=== PATIENT | female | born 1970 | race Caucasian/White ===

== ENCOUNTER → 2022-06-16 16:23 | Outpatient (CLI) | payer OTHER, SELFPAY ==
--- NOTE | ~2022-06-16 | MM_ITS ---
EXAMINATION: MM screening petrona BI w grzegorz HISTORY: Screening TECHNIQUE: Craniocaudal and mediolateral oblique 3-D tomosynthesis images were obtained and synthetic 2-D images were generated. CAD analysis was submitted and interpreted. COMPARISON: No prior mammogram is available for comparison at this institution. BREAST PARENCHYMAL COMPOSITION: The breasts are heterogeneously dense, which may obscure small masses . FINDINGS: There is no evidence of suspicious mass, calcification, or architectural distortion to sugg est malignancy in either breast. There has been no suspicious interval change. IMPRESSION: 1. No mammographic evidence of malignancy. 2. Recommend routine screening mammography in one year. BI-RADS Category 1: Negative Reviewed, dictated and finalized at location A.
== END ==
PROVIDERS: PCP Physician Assistant; Visit Provider Obstetrics & Gynecology
DX: Z12.31 Encounter for screening mammogram for malignant neoplasm of breast (principal)
CPT/HCPCS: 77063; 77067

== ENCOUNTER 2022-07-21 14:01 | Outpatient (CLI) | payer OTHER, SELFPAY ==
[2022-07-21 15:03] LABS: Add Urine Microscopic? YES; Appearance Urine Slightly Cloudy (Clear); Bilirubin Urine 1+ (Negative); Blood Urine 1+ (Negative); Color Urine Orange (Yellow); Glucose Urine UA Trace mg/dL (Negative); Ketones Urine 1+ mg/dL (Negative); Leukocyte Esterase Ur 3+ LEU/UL (NEGATIVE); Nitrate Urine Positive (Negative); Protein Urine 3+ mg/dL (Negative)
[2022-07-21 15:08] LABS: Amorphous Sediment Urine Few; Bacteria Urine 3+ /hpf; Mucus Urine Rare /lpf; Squamous Epithelial Cell Urine Many /hpf (Few); WBC Urine 51-75 /hpf (0-3)
== END 2022-07-21 14:02 | disposition home or self-care (01) ==
LOC: ANHLAB 14:03
PROVIDERS: PCP Physician Assistant; Visit Provider Physician Assistant
DX: R30.0 Dysuria (principal)
CPT/HCPCS: 81001; 87077; 87086; 87186

== ENCOUNTER 2022-07-21 14:47 | Emergency (ER) | payer OTHER, SELFPAY ==
[2022-07-21 14:52] VITALS: BP 144/79; PULSE 77; RESP 18; TEMP 37; O2SAT 98
[2022-07-21 16:20] VITALS: O2SAT 99
--- NOTE | 2022-07-21 16:26 | ECG_ITS ---
Measurements Intervals Blanding Rate: 56 P: 3 ND: 135 QRS: -22 QRSD: 88 T: -5 QT: 420 QTc: 407 Interpretive Statements SINUS BRADYCARDIA WITH SINUS ARRHYTHMIA BORDERLINE LEFT AXIS DEVIATION [QRS AXIS < -20] LOW QRS VOLTAGE IN PRECORDIAL LEADS [QRS DEFLECTION < 1.0 mV IN CHEST LEADS] INCOMPLETE RIGHT BUNDLE BRANCH BLOCK NO PREVIOUS ECG AVAILABLE FOR COMPARISON Electronically Signed On 07-22-2022 14:47:00 COMPLIANCE INTERN by Deysi Garcia M.D.
--- NOTE | 2022-07-21 16:44 | ED.GENADULT ---
HPI - General Adult General Chief complaint: Environmental Exposure Stated complaint: co2 exposure Time Seen by Provider: 07/21/22 15:56 History of Present Illness HPI narrative: 52-year-old female presented to the emergency department for evaluation of carbon monoxide exposure at her workplace. 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 Patient left to go to the primary care physician's appointment for urinary tract infection. While she was gone, her place of employment checked the carbon monoxide levels and found that it was elevated. She reports she has had a minor headache but patient denies any other symptoms. Patient states she is not . Related Data Allergies Allergy/AdvReac Type Severity Reaction Status Date / Time No Known Allergies Allergy Mild Verified 12/05/21 10:47 Review of Systems Review of Systems: CONSTITUTIONAL: Denies fever, chills, or sweats. EYES: Denies visual changes, redness, or discharge. ENT: Denies rhinorrhea, congestion, sore throat, or otalgia. CARDIOVASCULAR: Denies chest pain, palpitations, or edema. RESPIRATORY: Denies cough or dyspnea. GASTROINTESTINAL: Denies abdominal pain, nausea, vomiting, or diarrhea. GENITOURINARY: Denies dysuria or hematuria. SKIN: Denies rash or itching. MUSCULOSKELETAL: Denies back pain, joint pain, or myalgia. NEUROLOGIC: See HPI PMFSH Family History Family History Father Hypertension Family history of Parkinson's disease Sibling Patient's brother is in good health Grandparent Family history of lung cancer Social History Social History Smoking status: Former smoker Second hand tobacco smoke exposure: No Alcohol intake: current Exam Narrative: APPEARANCE: Well appearing, no pain, no distress, well-nourished. HEAD: normocephalic, atraumatic. EYES: PERRLA/EOMI, conjunctivae clear. NOSE: Normal no drainage NECK: Supple. No adenopathy, no masses. RESPIRATORY: Airway patent, respirations nonlabored. Clear to auscultation bilaterally, no rales, rhonchi, wheezing. CARDIOVASCULAR: Regular rate and rhythm without murmurs rubs or gallops. ABDOMINAL: Soft, nontender, nondistended, normal bowel sounds MUSCULOSKELETAL: Moves all extremities. Strength/ROM intact, No edema, No calf tenderness. NEURO: Alert. Cranial nerves II through XII intact. Grossly intact SKIN: Warm, dry. Normal Color PSYCHIATRIC: Normal affect/mood. Course Course Emergency Course: Upon arrival patient's monitor car monoxide was 14. Patient was placed on nonrebreather at 15 L for an hour and on recheck using the finger check her as PCO was 19. ABG was ordered and her carboxyhemoglobin was within normal limits. Patient was updated on the results of her blood test. Patient was also educated on reasons to return to the emergency department. All questions and concerns were addressed. Patient felt improved at time of discharge. Vital Signs Vital signs: Vital Signs Temperature 98.6 F 07/21/22 14:52 Pulse Rate 77 07/21/22 14:52 Respiratory Rate 18 07/21/22 14:52 Blood Pressure 144/79 H 07/21/22 14:52 Pulse Oximetry 98 07/21/22 14:52 Oxygen Delivery Room Air 07/21/22 14:52 Temperature 98.6 F 07/21/22 14:52 Pulse Rate 79 07/21/22 19:59 Respiratory Rate 18 07/21/22 19:59 Blood Pressure 144/79 H 07/21/22 14:52 Pulse Oximetry 100 07/21/22 19:59 Oxygen Delivery Non-Rebreather Mask 07/21/22 16:20 Oxygen Flow Rate 15 07/21/22 16:20 Medical Decision Making Vital Signs Vital Signs: Vital Signs Temperature 98.6 F 07/21/22 14:52 Pulse Rate 77 07/21/22 14:52 Respiratory Rate 18 07/21/22 14:52 Blood Pressure 144/79 H 07/21/22 14:52 Pulse Oximetry 98 07/21/22 14:52 Oxygen Delivery Room Air 07/21/22 14:52 Temperature 98.6 F 07/21/22 14:52 Pu
--- NOTE | 2022-07-21 18:23 | PC.NURSE ---
Patient's repeat SpCO 19. EDP Elmer notified.
[2022-07-21 18:24] VITALS: PULSE 96; RESP 18; O2SAT 100
[2022-07-21 18:35] LABS: Alveolar/Arterial O2 Gradient 284.3 mmHg; Base Excess ABG -2.6 mEq/l (+/-2.0); Carboxyhemoglobin 0.5 % THb (0-2.0); Fractional Inspired Oxygen 100 %; HCO3 ABG 20.4 mEq/l (22.0-26.0); Methemoglobin ABG 1.4 %THb (0-1.5); Oxygen Content ABG 18.8 %vol (16.0-22.0); Oxygen Saturation ABG 99.8 % (95.0-100.0); Oxyhemoglobin 97.2 % THb (90.0-100.0); PCO2 ABG 30.1 mmHg (35.0-45.0); PO2 ABG 398.6 mmHg (80.0-100.0); PO2 FiO2 Ratio Arterial Blood 3.99 %; Reduced Hemoglobin 0.9 %THb (0-5.0); pH ABG 7.448 (7.350-7.450)
[2022-07-21 18:36] LABS: Modified Allen's Test Pass; Site Drawn LEFT RADIAL
[2022-07-21 18:37] LABS: Device NON-REBREATHER MASK
[2022-07-21 19:59] VITALS: PULSE 79; RESP 18; O2SAT 100
== END 2022-07-21 20:10 | disposition home or self-care (01) ==
PROVIDERS: Emergency Provider Emergency Medicine; PCP Physician Assistant
DX: R51.9 Headache, unspecified (principal); T58.8X1A Toxic effect of carbon monoxide from other source, accidental (unintentional), initial encounter
CPT/HCPCS: 36600; 81025; 82375; 82805; 83050; 93005; 99283

== ENCOUNTER 2022-09-29 13:44 | Outpatient (CLI) | payer OTHER, SELFPAY ==
[2022-09-29 15:14] LABS: Bacteria Urine Trace /hpf; Mucus Urine Heavy /lpf; Squamous Epithelial Cell Urine Many /hpf (Few); WBC Urine >75 /hpf (0-3)
[2022-09-29 15:17] LABS: Add Urine Microscopic? YES; Appearance Urine Turbid (Clear); Color Urine Red (Yellow)
[2022-09-29 15:18] LABS: Bilirubin Urine Unable to determine (Negative); Blood Urine Unable to determine (Negative); Glucose Urine UA Unable to determine mg/dL (Negative); Ketones Urine Unable to determine mg/dL (Negative); Nitrate Urine Unable to determine (Negative); Protein Urine Unable to determine mg/dL (Negative); Urobilinogen Urine Unable to determine mg/dL (<2.0); pH Urine Unable to determine (5.0-9.0)
[2022-09-29 15:19] LABS: Leukocyte Esterase Ur Unable to determine LEU/UL (NEGATIVE)
== END 2022-09-29 13:45 | disposition home or self-care (01) ==
LOC: ANHLAB 13:46
PROVIDERS: PCP Physician Assistant; Visit Provider Physician Assistant
DX: R30.0 Dysuria (principal)
CPT/HCPCS: 81001; 87077; 87086; 87186

== ENCOUNTER 2022-12-02 23:47 | Emergency (ER) | payer OTHER, SELFPAY ==
--- NOTE | ~2022-12-02 | CT_ITS ---
CT of the Abdomen and Pelvis: Indication: Back pain, recurrent UTI Technique: 2.5 mm axial scans were obtained through the abdomen and pelvis following intravenous adm inistration of 100 cc of Omnipaque 350. Dose reduction technique was used on this scan by utilizing a utomated exposure control and iterative reconstruction technique. The dose-length product (DLP) was 5 47.15 mGy-cm. Findings: Scans through the lung bases are unremarkable. The liver, spleen, pancreas, adrenals and kidneys are within normal limits. Cholecystectomy clips are noted. No evidence of aortic aneurysm. No lymphadenopathy. No bowel obstruction or bowel wall thickening. There is no evidence to suggest acute appendicitis. Images through the pelvis were performed. Urinary bladder unremarkable. No adnexal mass evident. No a scites. Impression: No significant abnormalities seen. Reviewed, dictated and finalized at [facility]. Impression: No significant abnormalities seen.
[2022-12-02 23:58] VITALS: BP 114/68; PULSE 86; RESP 20; TEMP 36.2; O2SAT 99
[2022-12-03 00:09] LABS: Basophils Absolute Auto 0.1 K/mm3 (0.0-0.1); Basophils Percent Auto 0.3 % (0.2-1.2); Eosinophils Absolute Auto 0.3 K/mm3 (0-0.3); Eosinophils Percent Auto 1.2 % (0-4.4); Hematocrit 42.2 % (37.0-47.0); Immature Granulocyte Absolute 0.15 K/mm3 (0.00-0.031); Immature Granulocyte Percent A 0.7 % (0-0.5); Lymphocytes Absolute Auto 2.69 K/mm3 (0.9-3.2); Lymphocytes Percent Auto 12.7 % (18.3-44.2); Mean Corpuscular HGB Conc 33.2 g/dl (32-36); Mean Corpuscular Hemoglobin 31.5 pg (26-34); Mean Platelet Volume 9.4 fl (7.4-10.4); Monocytes Percent Auto 4.5 % (2.6-8.5); Neutrophils Absolute Auto 17.2 K/mm3 (1.3-6.7); Neutrophils Percent Auto 80.6 % (45.5-73.1); Platelet Count Result 347 k/mm3 (150-375); Red Blood Count 4.44 M/mm3 (4.2-5.4); Red Cell Distribution Width 13.2 % (11.5-14.5); White Blood Count 21.3 K/mm3 (4.5-10.0)
[2022-12-03 00:20] LABS: Alanine Aminotransferase 26 U/L (6-35); Albumin Level 4.7 g/dL (3.5-5.1); Alkaline Phosphatase 86 U/L (38-126); Anion Gap 8 mmol/L (8-16); Aspartate Amino Transferase 25 U/L (14-36); Bilirubin,Total 0.4 mg/dL (0.2-1.3); Blood Urea Nitrogen 14 mg/dL (7-17); Calcium 9.1 mg/dL (8.4-10.2); Carbon Dioxide 23 mmol/L (22-30); Chloride 107 mmol/L (98-107); Estimated Glomerular Filt Rate > 60; Glucose 107 mg/dL (65-110); Lipase 66 U/L (23-300); Potassium 3.4 mmol/L (3.4-5.0); Sodium 138 mmol/L (137-145)
[2022-12-03 00:39] LABS: Appearance Urine Cloudy (Clear); Bacteria Urine 1+ /hpf; Bilirubin Urine Negative (Negative); Blood Urine 2+ (Negative); Color Urine Yellow (Yellow); Glucose Urine UA Negative (Negative); Ketones Urine Trace mg/dL (Negative); Leukocyte Esterase Ur 1+ LEU/UL (Negative); Mucus Urine Present /lpf; Nitrate Urine Negative (Negative); Protein Urine Trace mg/dL (Negative); Specific Grav Ur 1.025 (1.001-1.035); Squamous Epithelial Cell Urine Few /hpf (Few); WBC Urine 21-50 /hpf; pH Urine 5.5 (5.0-9.0)
[2022-12-03 00:54] LABS: Add Urine Microscopic? YES
[2022-12-03 02:00] VITALS: BP 123/87; PULSE 80; RESP 19; O2SAT 98
[2022-12-03] MEDS: ONDANSETRON INJ 4 MG/2 ML VIAL IV PUSH (02:23)
[2022-12-03] MEDS: MAG HYDROX/AL HYDROX/SIMETH 30 ML UDC PO (02:23)
[2022-12-03] MEDS: SODIUM CHLORIDE 0.9% IV 2,000 ML 999 ML IV CONT (02:24)
[2022-12-03] MEDS: FAMOTIDINE 20 MG/2 ML VIAL IV PUSH (02:26)
--- NOTE | 2022-12-03 02:31 | ED.GENADULT ---
HPI - General Adult General Chief complaint: Abdominal Pain Stated complaint: abd pain Time Seen by Provider: 12/03/22 01:08 History of Present Illness HPI narrative: is a 52-year-old female presenting to ED with a chief complaint of epigastric pain. Patient said that she has been dealing with epigastric pain on off for the last 9 days. He has sharp pain that is nonradiating, 8 out 10 intensity and comes and goes. She says this feels like when she had gallbladder attack in the past although she has had a cholecystectomy since then. There are no alleviating or exacerbating factors. No relationship to food. She does have history of H pylori and peptic ulcer disease that would was treated in the past. The patient has also had multiple UTIs over the last several months. She denies urinary symptoms at this time Related Data Allergies Allergy/AdvReac Type Severity Reaction Status Date / Time No Known Allergies Allergy Mild Verified 12/05/21 10:47 [facility] Family History Family History Father Hypertension Family history of Parkinson's disease Sibling Patient's brother is in good health Grandparent Family history of lung cancer Social History Social History Smoking status: Former smoker Second hand tobacco smoke exposure: No Alcohol intake: current Exam Narrative: APPEARANCE: No apparent distress. Head: atraumatic. EYES: EOMI, NOSE: Atraumatic NECK: Trachea midline RESPIRATORY: No increased rate of breath, Clear to auscultation CARDIOVASCULAR: RRR, ABDOMINAL: mild epigastric tenderness but overall the abdomen is soft nontender no guarding or rebound. No CVA tenderness MUSCULOSKELETAl: No obvious deformities NEURO: Alert. Moving 4/4 extremities SKIN:: Warm, dry. Normal color PSYCHIATRIC: Normal affect Course Vital Signs Vital signs: Vital Signs Temperature 97.2 F L 12/02/22 23:58 Pulse Rate 86 12/02/22 23:58 Respiratory Rate 20 12/02/22 23:58 Blood Pressure 114/68 12/02/22 23:58 Pulse Oximetry 99 12/02/22 23:58 Temperature 97.2 F L 12/02/22 23:58 Pulse Rate 78 12/03/22 04:06 Respiratory Rate 14 12/03/22 04:06 Blood Pressure 127/76 12/03/22 04:06 Pulse Oximetry 97 12/03/22 04:06 Medical Decision Making MDM Narrative Medical decision making narrative: -Presentation: 52-year-old female presenting with nausea vomiting epigastric pain. History of frequent UTIs. 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 Metabolic panel within normal limits. Urinalysis indicative of infection. She was given 1 g of IV ceftriaxone. A CT abdomen pelvis was ordered but the result has not returned. The patient has to leave the hospital. She will be called back with any abnormal results. Dx tests considered but not ordered: -Procedures: none -Interventions: 2 L normal saline, Pepcid, Zofran, Maalox, 1 g ceftriaxone, compazine, benadryl -Shared decision making / Disposition: patient stated that she had to leave before her results returned. She will be discharged with medications and return precautions. She will be called if any abnormal results. -RX Vital Signs Vital Signs: Vital Signs Temperature 97.2 F L 12/02/22 23:58 Pulse Rate 86 12/02/22 23:58 Respiratory Rate 20 12/02/22 23:58 Blood Pressure 114/68 12/02/22 23:58 Pulse Oximetry 99 12/02/22 23:58 Temperature 97.2 F L 12/02/22 23:58 Pulse Rate 78 04
[2022-12-03 03:34] VITALS: BP 134/79; PULSE 98; RESP 13; O2SAT 100
[2022-12-03] MEDS: PROCHLORPERAZINE EDISYLATE 10 MG/2 ML VIAL IV PUSH (03:51)
[2022-12-03 04:06] VITALS: BP 127/76; PULSE 78; RESP 14; O2SAT 97
[2022-12-03] MEDS: diphenhydrAMINE HCl INJ 50 MG/ML VIAL 25 MG IV PUSH (04:06)
[2022-12-03 05:20] VITALS: BP 112/74; PULSE 87; RESP 19; O2SAT 99
== END 2022-12-03 05:20 | disposition home or self-care (01) ==
PROVIDERS: Emergency Provider Emergency Medicine; PCP Physician Assistant
DX: K29.70 Gastritis, unspecified, without bleeding (principal); N39.0 Urinary tract infection, site not specified; Z87.891 Personal history of nicotine dependence
CPT/HCPCS: 36415; 74177; 80053; 81001; 81025; 83690; 85025; 87077; 87086; 87186; 96361; 96374; 96375; 99284; A9270; J0780; J1200; J2405; J7030; Q9967

== ENCOUNTER 2023-01-07 09:00 | Outpatient (NON) | payer OTHER, SELFPAY | END 2023-01-07 09:01 | disposition home or self-care (01) | LOC: ANHLAB 01-08 07:18 | PROVIDERS: PCP Physician Assistant; Visit Provider Internal Medicine Gastroenterology | DX: R10.9 Unspecified abdominal pain (principal) | CPT/HCPCS: 88305 ==

== ENCOUNTER 2023-01-07 11:32 | Day surgery (SDC) | payer OTHER, SELFPAY ==
[2022-12-23 11:33] VITALS: BMI 28.8
--- NOTE | 2023-01-07 12:16 | PM.HPGS ---
History of Present Illness History of Present Illness Consent: Risks, benefits, and alternatives have been discussed and questions answered. Patient agrees to proceed with procedure. Chief complaint: Unspecified ABD Pain, Acquired Absence of other Narrative: Tamara Perez is a 52 year old female referred for investigation of epigastric pain. This began in November in fact after a week or so she had gone to the emergency room. She does have a history of peptic ulcer disease and was treated for H pylori. She is frequently nauseated with this. The 2 occasions she went to the emergency room she was vomiting as well. Both those time she felt like she was having a gallbladder attack. Her weight is stable. She had recently been given prescriptions for pantoprazole and sucralfate but held off on taking them until she had this procedure. Review of Systems Review of Systems: All systems reviewed & are unremarkable except as noted in HPI and below PMFSH Past Medical History Medical History Anxiety Migraine Family History Family History Father Hypertension Family history of Parkinson's disease Sibling Patient's brother is in good health Grandparent Family history of lung cancer Social History Social History Smoking status: Current every day smoker Tobacco type: e-cigarettes/vaping Second hand tobacco smoke exposure: No Alcohol intake: current Substance use: never Substance use type: does not use Lack of Transportation: No Lack of Food: Never True Current Housing: I Have Housing Concerned About Future Housing: No Difficulty Paying Gas/Electric Bills: No Difficulty Paying for Meds: YES Currently Unemployed: No Education: Trade/Vocational Certificate Difficulty w/ Childcare or Family Care: No Living arrangements: alone Spiritual care concerns: No Meds Home Medications and Allergies Home Medications Medication Instructions Recorded Confirmed Type rizatriptan 10 mg tablet See Rx Instructions PO .COMPLEX #9 12/05/21 01/07/23 Rx tabs ondansetron 4 mg disintegrating 4 mg PO Q8H PRN nausea and 12/03/22 01/07/23 Rx tablet vomiting #30 tabs pantoprazole 40 mg tablet,delayed 40 mg PO QAM #90 tabs 12/04/22 01/07/23 Rx release sucralfate 1 gram tablet (Carafate) 1 g PO QID #120 tabs 12/04/22 01/07/23 Rx L norgest/E estradiol-E estrad 1 tablet PO DAILY 12/23/22 01/07/23 History 0.15 mg-30 mcg (84)/10 mcg(7) tabs,3mos (Simpesse) alprazolam 0.5 mg tablet 0.5 mg PO BID PRN anxiety #30 tabs 12/25/22 01/07/23 Rx Allergies Allergy/AdvReac Type Severity Reaction Status Date / Time No Known Allergies Allergy Mild Verified 01/07/23 12:25 Exam Const: General: alert Orientation/consciousness: patient oriented x3 Resp: Auscultation: clear to auscultation bilaterally Cardio: Rhythm: regular rhythm GI: GI Palp: Yes Soft to palpation and No Tenderness to palpation present (GI) Neuro: General: patient oriented x3 Assessment and Plan Assessment and plan (1) Epigastric pain: Code(s): R10.13 - Epigastric pain Status: Acute Assessment and Plan: EGD with possible biopsy or dilatation or cautery.
--- NOTE | 2023-01-07 12:40 | P.PNAN_ITS ---
Anes - Initial Pre Proc Eval Procedure: Operation Date: 01/07/23 13:30 Proposed Procedures p Esophagogastroduodenoscopy - Reji Hernandez MD Date/Time: 01/07/23 12:40 Surgeon: Reji Hernandez MD Pre Op Diagnosis: Unspecified ABD Pain, Acquired Absence of other Patient Data Age: 52 Gender: F Height: 1.68 m Weight: 81 kg Allergies Allergy/AdvReac Type Severity Reaction Status Date / Time No Known Allergies Allergy Mild Verified 01/07/23 12:25 Home Medications Medication Instructions Recorded Confirmed Type rizatriptan 10 mg tablet See Rx Instructions PO .COMPLEX #9 12/05/21 01/07/23 Rx tabs ondansetron 4 mg disintegrating 4 mg PO Q8H PRN nausea and 12/03/22 01/07/23 Rx tablet vomiting #30 tabs pantoprazole 40 mg tablet,delayed 40 mg PO QAM #90 tabs 12/04/22 01/07/23 Rx release sucralfate 1 gram tablet (Carafate) 1 g PO QID #120 tabs 12/04/22 01/07/23 Rx L norgest/E estradiol-E estrad 1 tablet PO DAILY 12/23/22 01/07/23 History 0.15 mg-30 mcg (84)/10 mcg(7) tabs,3mos (Simpesse) alprazolam 0.5 mg tablet 0.5 mg PO BID PRN anxiety #30 tabs 12/25/22 01/07/23 Rx Patient hx anesthesia problems: none Family hx anesthesia problems: none Results Review: All pre-operative results and documents have been reviewed as part of the pre- operative evaluation. [facility] Past Medical History Medical History Anxiety Migraine Surgical History Surgical History (Updated 01/07/23 @ 12:52 by Dominguez Turcios MD) History of section History of cholecystectomy Family History Family History Father Hypertension Family history of Parkinson's disease Sibling Patient's brother is in good health Grandparent Family history of lung cancer Social History Social History Smoking status: Current every day smoker Tobacco type: e-cigarettes/vaping Second hand tobacco smoke exposure: No Alcohol intake: current Substance use: never Substance use type: does not use Lack of Transportation: No Lack of Food: Never True Current Housing: I Have Housing Concerned About Future Housing: No Difficulty Paying Gas/Electric Bills: No Difficulty Paying for Meds: YES Currently Unemployed: No Education: Trade/Vocational Certificate Difficulty w/ Childcare or Family Care: No Living arrangements: alone Spiritual care concerns: No Anes - Eval Final PreProcedure Day of Procedure 01/07/23 12:40 Patient weight: overweight Heart: regular rate and rhythm Lungs: clear to auscultation Airway: Mallampati scale Neurological: alert and oriented Last oral intake: >/= 8 hours ASA classification: II Emergent: no Anesthetic plan: proceed Anesthesia type and monitoring: general GIVS and standard monitoring Results Review: All pre-operative results and documents have been reviewed as part of the pre- operative evaluation. Informed Consent: The patient's anesthetic plan and its attendant risks and benefits were discussed with the patient/family/POA. Questions were solicited and answers provided to the satisfaction of the patient/family/POA.
[2023-01-07] MEDS: LACTATED RINGERS 1,000 ML 150 ML IV CONT (12:43)
[2023-01-07 12:44] VITALS: BP 124/86; PULSE 96; RESP 20; TEMP 37.4; O2SAT 99; BMI 28.0
[2023-01-07 13:27] VITALS: BP 124/77; PULSE 91; RESP 18; O2SAT 100
[2023-01-07 13:37] VITALS: BP 130/77; PULSE 91; RESP 18; O2SAT 100
--- NOTE | 2023-01-07 13:40 | WPDANESPN ---
Anes - Prog Note Post-Op Date/Time: 01/07/23 13:40 Cardiovascular status: normal Respiratory status: normal Airway patency: baseline Mental status: baseline Post-Op hydration status: normal Vital Signs: Last Vital Signs Temp 37.4 C 01/07/23 12:44 Pulse 91 01/07/23 13:27 Resp 18 01/07/23 13:27 BP 124/77 01/07/23 13:27 Pulse Ox 100 01/07/23 13:27 O2 Del Method Room Air 01/07/23 13:27 Pain Score (VAS): 0/10 I/O: Intake & Output 01/06/23 01/07/23 01/07/23 23:59 07:59 15:59 Intake Total 200 Balance 200 Patient Feedback: Patient satisfied with anesthetic care.
[2023-01-07 13:47] VITALS: BP 129/81; PULSE 87; RESP 20; O2SAT 100
== END 2023-01-07 14:00 | disposition home or self-care (01) ==
PROVIDERS: PCP Physician Assistant; Visit Provider Internal Medicine Gastroenterology
PROC: 0DJ08ZZ Inspection of Upper Intestinal Tract, Via Natural or Artificial Opening Endoscopic (ICD-10-PCS; CPT 43235; principal; 2023-01-07 13:30)
DX: R10.13 Epigastric pain (principal)
CPT/HCPCS: 43239

== ENCOUNTER 2023-10-21 11:00 | Outpatient (RCR) | payer BC, OTHER, SELFPAY ==
--- NOTE | 2023-07-28 08:24 | OPREHPOC ---
Outpatient Therapy Plan of Care This is a Multidisciplinary Plan of Care that may contain components documented by all disciplines (PT, OT, and ST.) PT Problem 1 PT Problem #1 Knowledge Deficit PT Goal 1 Goal Pt to be IND with issued HEP Target Visit 8 PT Problem 2 PT Problem #2 Pain PT Goal 1 Goal Pt to report pain no greater than 3/10 in the last week. Target Visit 8 PT Goal 2 Goal Pt to report 75% improvement in overall symptoms. Target Visit 8 PT Problem 3 PT Problem #3 Impaired Range of Motion PT Goal 1 Goal Pt to improve cervical rotation to 60 deg ea direction to assist with driving. Target Visit 8 PT Goal 2 Goal Pt to improve cervical lateral flexion to 25 deg dulce to demonstrate improve upper trap muscle length. Target Visit 8 PT Problem 4 PT Problem #4 Impaired Range of Motion PT Goal 1 Goal Pt to improve active shoulder abduction to 140 deg dulce Target Visit 8 PT Problem 5 PT Problem #5 Impaired Strength PT Goal 1 Goal Pt to demonstrate dulce shoulder strength grossly 4+ /5 Target Visit 8 PT Goal 2 Goal Pt to be able to life and carry 10lb from ground level without compensations. Target Visit 8
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
--- NOTE | 2023-08-05 11:07 | PCPTNOTE ---
Patient called to cancel this date due to illness.
--- NOTE | 2023-08-11 09:46 | PCPTNOTE ---
Patient called & cancelled scheduled appointment this date due to being sick.
--- NOTE | 2023-08-12 10:38 | PCPTNOTE ---
Patient called & cancelled scheduled appointment this date due to still being ill.
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
--- NOTE | 2023-08-31 13:00 | PCPTNOTE ---
Patient called to cancel appointment 08/31/23.
--- NOTE | 2023-09-07 14:28 | PCPTNOTE ---
Patient reports she is hurting so bad she has to cancel appointment.
--- NOTE | 2023-09-14 16:50 | PCPTNOTE ---
patient called to cancel due to having stuff going on.
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
--- NOTE | 2023-09-29 12:45 | PCPTNOTE ---
Patient called & cancelled scheduled appointment this date, she stated she was not feeling up to coming.
--- NOTE | 2023-10-01 10:39 | PCPTNOTE ---
Patient called & cancelled scheduled appointment this date, she did not give a reason why.
--- NOTE | 2023-10-15 12:35 | PCPTNOTE ---
Patient called and canceled treatment due to a conflicting meeting.
--- NOTE | 2023-10-19 11:16 | PCPTNOTE ---
Patient no showed to appointment this date. Called and left voicemail.
--- NOTE | 2023-10-25 14:47 | PCPTNOTE ---
This treatment is being continued on visit number [id number]. Please see documentation on both accounts to view progress. Completed interventions, outcomes, and problems have been marked as Inactive to facilitate the copying of the Care plan routine for recurring accounts.
== END 2023-10-25 08:53 | disposition still patient (30) ==
LOC: ANHGOSHPT 11:00
PROVIDERS: PCP Internal Medicine; Visit Provider Neurological Surgery
DX: M48.42 Fatigue fracture of vertebra, cervical region (principal)
CPT/HCPCS: 97014; 97110; 97140; 97161; 97530; 99199; G0283

== ENCOUNTER 2023-10-27 11:42 | Outpatient (RCR) | payer BC, SELFPAY ==
--- NOTE | 2023-10-25 14:47 | PCPTNOTE ---
The treatment documented on this account is a continuation of the treatment documented on visit number [id number]. Please see documentation on both accounts to view progress. The Plan of Care has been transitioned and updated within the new V#. I have addressed and agree with the discipline specific Problems, Interventions, and Goals for the current certification period. Completed interventions, outcomes, and problems have been marked as Inactive to facilitate the copying of the Care plan routine for recurring accounts.
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
== END 2023-10-27 13:08 | disposition home or self-care (01) ==
LOC: ANHGOSHPT 11:42
PROVIDERS: PCP Physician Assistant; Visit Provider Neurological Surgery
DX: M48.42 Fatigue fracture of vertebra, cervical region (principal)
CPT/HCPCS: 97110

== ENCOUNTER 2023-10-28 12:18 | Outpatient (CLI) | payer BC, SELFPAY ==
--- NOTE | ~2023-10-28 | XR_ITS ---
EXAMINATION: XR shoulder LT min 2V DATE: 10/28/2023 12:40 INDICATION: Left shoulder pain. TECHNIQUE: 4 views of left shoulder were obtained. COMPARISON: None. FINDINGS: Bone alignment is normal. No fracture. There is mild osteoarthritis of glenohumeral joint a nd acromioclavicular joint characterized by tiny osteophytes. IMPRESSION: 1. Mild polyarticular osteoarthritis. Reviewed, dictated and finalized at location A.
--- NOTE | ~2023-10-28 | XR_ITS ---
EXAMINATION: XR thoracic spine 3V DATE: 10/28/2023 12:41 INDICATION: Back pain. T5 and T6 fractures. TECHNIQUE: 3 views of thoracic spine were obtained. COMPARISON: CT abdomen and pelvis 11/2522 FINDINGS: There is 14 degrees levoscoliosis of cervicothoracic spine. There are chronic compression f ractures of T5 and T6 with 2/5 and 3/5 loss of height, respectively. Intervertebral disc heights are normal. There are endplate osteophytes at most levels. There are surgical clips in right abdomen. IMPRESSION: 1. Chronic compression fractures of T5 and T6. 2. Cervicothoracic levoscoliosis. Reviewed, dictated and finalized at location A.
--- NOTE | ~2023-10-28 | XR_ITS ---
EXAMINATION: XR cervical spine 4-5V DATE: 10/28/2023 12:41 INDICATION: C4 fracture. TECHNIQUE: 4 views of cervical spine were obtained. COMPARISON: None. FINDINGS: There is 9 degrees levocurvature of cervicothoracic spine. Vertebral body heights are marion l. There is mildly decreased disc height at C5-C6 and moderately decreased disc height at C6-C7. At C 6-C7, there is severe bilateral uncovertebral joint osteoarthritis. There is multilevel mild facet dotty int osteoarthritis. There is mild central canal stenosis at C5-6 and C6-C7. No prevertebral soft tiss ue swelling. IMPRESSION: 1. Moderate cervical spondylosis. Reviewed, dictated and finalized at location A.
== END 2023-10-28 12:19 ==
PROVIDERS: PCP Physician Assistant; Visit Provider Anesthesiology Pain Medicine
DX: S12.9XXA Fracture of neck, unspecified, initial encounter (principal); S22.009D Unspecified fracture of unspecified thoracic vertebra, subsequent encounter for fracture with routine healing; M25.812 Other specified joint disorders, left shoulder; M47.892 Other spondylosis, cervical region; M19.012 Primary osteoarthritis, left shoulder; X58.XXXA Exposure to other specified factors, initial encounter; X58.XXXD Exposure to other specified factors, subsequent encounter
CPT/HCPCS: 72050; 72072; 73030

== ENCOUNTER 2023-11-02 10:30 | Outpatient (CLI) | payer BC, SELFPAY ==
--- NOTE | ~2023-11-02 | MR_ITS ---
MRI of the left shoulder Technique: Axial proton-density fat-sat images, coronal proton density fat-sat and T2 fat-sat images, and sagittal T1-weighted and T2 fat-sat images were acquired. Clinical History: Pain Findings: No significant degenerative changes AC joint. Coracoclavicular, coracoacromial, coracohumer al ligaments are intact. Supraspinatus and infraspinatus tendons insert mild tendinosis, without partial or full-thickness tea r. Subscapularis tendon is intact with moderate tendinosis. Tendon of long head of the biceps is inta ct. No definite labral tear identified. Probable intrasubstance degenerative signal of the superior labru m rather than tear. There is thickening and increased signal of the inferior glenohumeral ligament. Small glenohumeral dotty int effusion present. No degenerative change. No subacromial/subdeltoid bursitis. No muscle atrophy o r edema. Impression: Suspected adhesive capsulitis. Probable degenerative signal in the superior labrum rather than tear. Mild rotator cuff tendinosis. Reviewed, dictated and finalized at location . Impression: Suspected adhesive capsulitis. Probable degenerative signal in the superior labrum rather than tear. Mild rotator cuff tendinosis.
--- NOTE | ~2023-11-02 | MR_ITS ---
MRI of the cervical spine Clinical History: Fracture Technique: Axial T2-weighted and gradient images, and sagittal T1-weighted, T2-weighted, and STIR gregory ges were acquired. Following intravenous administration of 15 cc MultiHance gadolinium, T1-weighted f at-sat imaging was performed in the axial and sagittal planes. Findings: No acute fracture or subluxation identified. Vertebral bodies maintain normal height and al ignment. No suspicious bone marrow signal abnormality seen. At C2-C3, there is tiny disc osteophyte complex. No spinal canal stenosis, cord compression, or neura l foraminal narrowing. At C3-C4, there is small central disc osteophyte convex. No spinal canal stenosis, cord compression, or neural foraminal narrowing. At C4-C5, there is no disc bulge or herniation. No spinal canal stenosis, cord compression, or neural foraminal narrowing. At C5-C6, there is minimal disc osteophyte complex. No spinal canal stenosis, cord compression, or ne ural foraminal narrowing. There is minimal facet arthropathy. At C6-C7, there is mild degenerative disc narrowing with minimal disc osteophyte convex. No spinal ca nal stenosis, cord compression, or definite neural foraminal narrowing. No abnormal signal seen in the spinal cord. Paravertebral soft tissues are unremarkable. No abnormal postcontrast enhancement identified. Impression: No acute abnormalities or fractures seen. Minimal degenerative changes, as above. Reviewed, dictated and finalized at [facility]. Impression: No acute abnormalities or fractures seen. Minimal degenerative changes, as above.
== END 2023-11-02 10:31 ==
LOC: GOSHIMG 10:31
PROVIDERS: PCP Physician Assistant; Visit Provider Anesthesiology Pain Medicine
DX: S12.9XXA Fracture of neck, unspecified, initial encounter (principal); X58.XXXA Exposure to other specified factors, initial encounter; M25.512 Pain in left shoulder
CPT/HCPCS: 72156; 73221; A9577